=== PATIENT | female | born 1995 | race Caucasian/White ===

== ENCOUNTER 2017-06-15 14:35 | Observation (INO) | payer MEDICAID ==
[~2017-06-15] VITALS: Ht 162.6 cm; Wt 127.0 kg
[2017-06-15 15:27] LABS: Urine RBC None Seen /hpf (0 - 4)
[2017-06-15] MEDS ORDERED: PRENCAP61 PO (15:35)
[2017-06-15] MEDS ORDERED: CALC500C3 PO (15:36)
[2017-06-15 15:44] LABS: Basophils # (auto) 0.1 uL; Basophils % (auto) 0.5 % (0.0-2.0); Eosinophils # (auto) 0.1 uL; Eosinophils % (auto) 0.5 % (0.0-7.0); Hematocrit 38.5 % (36.0-46.0); Hemoglobin 12.8 g/dL (12.2-16.2); Lymphocytes # (auto) 2.3 uL; Lymphocytes % (auto) 21.4 % (10.0-50.0); Mean Corpuscular Hemoglobin 28.3 pg (28.0-32.0); Mean Corpuscular Hgb Conc. 33.2 g/dL (32.0-36.0); Mean Corpuscular Volume 85.3 fL (80.0-100.0); Mean Platelet Volume 8.5 fL (6.9-10.8); Monocytes # (auto) 0.7 uL; Neutrophils # (auto) 7.5 uL; Neutrophils % (auto) 70.6 % (37.0-80.0); Nucleated Red Blood Cells % 0.1 %; Platelet Count (auto) 233 10^3/uL (140-450); Red Cell Distribution Width 15.6 % (11.8-14.3); White Blood Cell 10.7 10^3/uL (4.4-10.8)
[2017-06-15 15:54] LABS: Urine Bilirubin Negative (Negative); Urine Blood Negative /uL (Negative); Urine Color Orange (Yellow); Urine Glucose Normal (Normal); Urine Ketone TRACE (Negative); Urine Mucus MODERATE (None Seen); Urine Nitrite Negative (Negative); Urine Squamous Epithelial Cell MOD /hpf (<5)
[2017-06-15 16:06] LABS: INR 0.9 (0.9-1.15); Partial Thromboplastin Time 26.4 sec (22.64-33.71); Prothrombin Time 9.8 sec (9.37-12.3)
[2017-06-15 16:07] LABS: Albumin 2.2 g/dL (3.4-5.0); Bilirubin, Total 0.2 mg/dL (0.2-1.0); Calcium 8.7 mg/dL (8.5-10.1); Potassium 4.1 mmol/L (3.5-5.1); Total Protein 6.2 g/dL (6.4-8.2); Uric Acid 6.3 mg/dL (2.6-6.0)
== END 2017-06-15 16:35 | disposition home or self-care (01) | DRG 566 ==
LOC: LDRP 14:35
PROVIDERS: ADMIT Obstetrics & Gynecology; ATTEND Obstetrics & Gynecology
DX: O99.413 Diseases of the circulatory system complicating pregnancy, third trimester (principal); R03.0 Elevated blood-pressure reading, without diagnosis of hypertension; Z3A.36 36 weeks gestation of pregnancy
CPT/HCPCS: 36415; 59025; 80053; 81001; 84550; 85025; 85610; 85730; G0378

== ENCOUNTER 2017-06-17 18:00 | Observation (INO) | payer MEDICAID ==
[~2017-06-17 18:00] MED LIST: CALC500C3 PO; PRENCAP61 PO
== END 2017-06-17 20:20 | disposition home or self-care (01) | DRG 560 ==
LOC: LDRP 18:00
PROVIDERS: ADMIT Obstetrics & Gynecology; ATTEND Obstetrics & Gynecology
DX: O13.4 Gestational [pregnancy-induced] hypertension without significant proteinuria, complicating childbirth (principal); Z3A.37 37 weeks gestation of pregnancy
CPT/HCPCS: 59025; 81002; 84156; G0378

== ENCOUNTER 2017-06-22 10:50 | Observation (INO) | payer MEDICAID ==
[2017-06-22 12:08] LABS: Albumin 2.2 g/dL (3.4-5.0); Bilirubin, Total 0.2 mg/dL (0.2-1.0); Calcium 8.5 mg/dL (8.5-10.1); Uric Acid 5.5 mg/dL (2.6-6.0)
[2017-06-22 12:09] LABS: Basophils # (auto) 0 uL; Basophils % (auto) 0.3 % (0.0-2.0); Eosinophils # (auto) 0.1 uL; Eosinophils % (auto) 0.6 % (0.0-7.0); Hematocrit 37.8 % (36.0-46.0); Hemoglobin 12.5 g/dL (12.2-16.2); Lymphocytes # (auto) 2.5 uL; Lymphocytes % (auto) 21.7 % (10.0-50.0); Mean Corpuscular Hemoglobin 28.4 pg (28.0-32.0); Mean Corpuscular Hgb Conc. 33.1 g/dL (32.0-36.0); Mean Corpuscular Volume 85.8 fL (80.0-100.0); Mean Platelet Volume 8.6 fL (6.9-10.8); Monocytes # (auto) 0.7 uL; Monocytes % (auto) 6.1 % (0.0-12.0); Neutrophils # (auto) 8.4 uL; Neutrophils % (auto) 71.3 % (37.0-80.0); Nucleated Red Blood Cells % 0.1 %; Platelet Count (auto) 208 10^3/uL (140-450); Red Cell Distribution Width 15.8 % (11.8-14.3); White Blood Cell 11.7 10^3/uL (4.4-10.8)
[2017-06-22 12:13] LABS: INR 0.89 (0.9-1.15); Prothrombin Time 9.7 sec (9.37-12.3)
== END 2017-06-22 13:10 | disposition home or self-care (01) | DRG 566 ==
LOC: LDRP 10:50
PROVIDERS: ADMIT Specialist; ATTEND Specialist
DX: O13.3 Gestational [pregnancy-induced] hypertension without significant proteinuria, third trimester (principal); Z3A.37 37 weeks gestation of pregnancy
CPT/HCPCS: 36415; 59025; 80053; 81002; 84550; 85025; 85610; 85730; G0378

== ENCOUNTER 2017-06-25 14:00 | Observation (INO) | payer MEDICAID, OTHER ==
[~2017-06-25 14:00] MED LIST changes: -CALC500C3 PO
[2017-06-25 16:11] LABS: Basophils # (auto) 0 uL; Basophils % (auto) 0.2 % (0.0-2.0); Eosinophils # (auto) 0.1 uL; Eosinophils % (auto) 0.5 % (0.0-7.0); Hemoglobin 12.2 g/dL (12.2-16.2); Lymphocytes # (auto) 2.4 uL; Lymphocytes % (auto) 20.5 % (10.0-50.0); Mean Corpuscular Hemoglobin 28.3 pg (28.0-32.0); Mean Corpuscular Volume 85.7 fL (80.0-100.0); Mean Platelet Volume 8.4 fL (6.9-10.8); Monocytes # (auto) 0.9 uL; Monocytes % (auto) 7.2 % (0.0-12.0); Neutrophils # (auto) 8.5 uL; Neutrophils % (auto) 71.6 % (37.0-80.0); Platelet Count (auto) 221 10^3/uL (140-450); White Blood Cell 11.9 10^3/uL (4.4-10.8)
[2017-06-25 16:25] LABS: INR 0.9 (0.9-1.15); Partial Thromboplastin Time 25.4 sec (22.64-33.71); Prothrombin Time 9.8 sec (9.37-12.3)
[2017-06-25 16:36] LABS: Albumin 2.2 g/dL (3.4-5.0); BUN/Creatinine Ratio 14.3; Bilirubin, Total 0.2 mg/dL (0.2-1.0); Calcium 8.9 mg/dL (8.5-10.1); Potassium 4.3 mmol/L (3.5-5.1); Total Protein 6.2 g/dL (6.4-8.2); Uric Acid 5.3 mg/dL (2.6-6.0)
== END 2017-06-25 14:55 | disposition home or self-care (01) | DRG 566 ==
LOC: LDRP 14:00 → EDUNIT# 14:00
PROVIDERS: ADMIT Obstetrics & Gynecology; ATTEND Specialist
DX: O62.9 Abnormality of forces of labor, unspecified (principal); Z3A.38 38 weeks gestation of pregnancy
CPT/HCPCS: 36415; 59025; 76818; 80053; 81002; 84550; 85025; 85610; 85730; G0378

== ENCOUNTER 2017-06-27 20:00 | Observation (INO) | payer MEDICAID ==
[2017-06-27 21:25] LABS: Basophils # (auto) 0 uL; Basophils % (auto) 0.4 % (0.0-2.0); Eosinophils # (auto) 0.1 uL; Eosinophils % (auto) 0.6 % (0.0-7.0); Hematocrit 37.7 % (36.0-46.0); Hemoglobin 12.3 g/dL (12.2-16.2); Lymphocytes % (auto) 24.1 % (10.0-50.0); Mean Corpuscular Hgb Conc. 32.7 g/dL (32.0-36.0); Mean Corpuscular Volume 85.7 fL (80.0-100.0); Mean Platelet Volume 8.9 fL (6.9-10.8); Monocytes # (auto) 0.9 uL; Monocytes % (auto) 7.6 % (0.0-12.0); Neutrophils # (auto) 8.3 uL; Neutrophils % (auto) 67.3 % (37.0-80.0); Nucleated Red Blood Cells % 0.1 %; Platelet Count (auto) 230 10^3/uL (140-450); Red Cell Distribution Width 15.9 % (11.8-14.3); White Blood Cell 12.4 10^3/uL (4.4-10.8)
[2017-06-27 21:27] LABS: Urine Bilirubin Negative (Negative); Urine Blood Negative /uL (Negative); Urine Color Yellow (Yellow); Urine Glucose Normal (Normal); Urine Ketone TRACE (Negative); Urine Mucus FEW (None Seen); Urine Nitrite Negative (Negative); Urine RBC 1 /hpf (0 - 4); Urine Squamous Epithelial Cell FEW /hpf (<5)
[2017-06-27 21:35] LABS: Albumin 2.3 g/dL (3.4-5.0); BUN/Creatinine Ratio 15.1; Bilirubin, Total 0.2 mg/dL (0.2-1.0); Calcium 8.7 mg/dL (8.5-10.1); Potassium 3.9 mmol/L (3.5-5.1); Total Protein 6.2 g/dL (6.4-8.2); Uric Acid 5.5 mg/dL (2.6-6.0)
[2017-06-27 21:42] LABS: INR 0.9 (0.9-1.15); Partial Thromboplastin Time 25.1 sec (22.64-33.71); Prothrombin Time 9.8 sec (9.37-12.3)
== END 2017-06-27 23:13 | disposition home or self-care (01) | DRG 566 ==
LOC: LDRP 20:00 → EDUNIT# 20:00
PROVIDERS: ADMIT Obstetrics & Gynecology; ATTEND Obstetrics & Gynecology
DX: O13.3 Gestational [pregnancy-induced] hypertension without significant proteinuria, third trimester (principal); Z3A.38 38 weeks gestation of pregnancy
CPT/HCPCS: 36415; 59025; 76818; 80053; 80307; 81001; 81002; 84550; 85025; 85610; 85730; 86850; 86900; 86901; G0378

== ENCOUNTER 2017-06-30 14:30 | Inpatient (IN) | payer MEDICAID ==
[~2017-06-30] VITALS: Ht 162.6 cm; Wt 127.0 kg
[2017-06-30] MEDS: LACTATED RINGER'S 1,000 ML IV SCH ×2 (06:45→15:50)
[2017-06-30] MEDS ORDERED: LACT. RINGERS/OXYTOCIN 20UNITS 1,000 ML IV SCH (15:29)
[2017-06-30] MEDS ORDERED: CARBOPROST TROMETHAMINE 250 MCG/1ML VIAL IM PRN (15:30)
[2017-06-30] MEDS ORDERED: WITCH HAZEL-GLYCERIN PAD TOP PRN (15:30)
[2017-06-30] MEDS ORDERED: PHISODERM TOP SOLN 240ML BTL TOP PRN (15:30)
[2017-06-30] MEDS ORDERED: NALBUPHINE HCL 10 MG/1ml INJECTION IV PRN (15:30)
[2017-06-30] MEDS ORDERED: METHYLERGONOVINE MALEATE 0.2 MG/ML AMP IM PRN (15:30)
[2017-06-30] MEDS ORDERED: DERMOPLAST 60ML BOTTLE TOP PRN (15:30)
[2017-06-30] MEDS ORDERED: LIDOCAINE 2%HCL (LOCAL ANESTH.) INJ 20ML MDV IJ ONE (15:30)
[2017-06-30 16:37] LABS: Albumin 2.3 g/dL (3.4-5.0); BUN/Creatinine Ratio 9.4; Calcium 8.6 mg/dL (8.5-10.1); Potassium 3.8 mmol/L (3.5-5.1)
[2017-06-30 16:39] LABS: Bilirubin, Total 0.2 mg/dL (0.2-1.0)
[2017-06-30 16:50] LABS: INR 0.92 (0.9-1.15); Partial Thromboplastin Time 25.7 sec (22.64-33.71)
[2017-06-30 17:15] LABS: Urine Bilirubin Negative (Negative); Urine Blood Negative /uL (Negative); Urine Color Yellow (Yellow); Urine Glucose Normal (Normal); Urine Ketone Negative (Negative); Urine Mucus FEW (None Seen); Urine Nitrite Negative (Negative); Urine RBC <1 /hpf (0 - 4); Urine Squamous Epithelial Cell FEW /hpf (<5); Urine Urobilinogen Normal (Negative)
[2017-06-30 17:34] LABS: Basophils # (auto) 0 uL; Basophils % (auto) 0.3 % (0.0-2.0); Eosinophils # (auto) 0 uL; Eosinophils % (auto) 0.2 % (0.0-7.0); Hematocrit 37.7 % (36.0-46.0); Hemoglobin 12.5 g/dL (12.2-16.2); Lymphocytes # (auto) 2.3 uL; Lymphocytes % (auto) 19.6 % (10.0-50.0); Mean Corpuscular Hemoglobin 28.2 pg (28.0-32.0); Mean Corpuscular Volume 85.5 fL (80.0-100.0); Mean Platelet Volume 9.4 fL (6.9-10.8); Monocytes # (auto) 0.7 uL; Neutrophils # (auto) 8.7 uL; Neutrophils % (auto) 73.9 % (37.0-80.0); Nucleated Red Blood Cells % 0.2 %; Platelet Count (auto) 223 10^3/uL (140-450); Red Cell Distribution Width 15.8 % (11.8-14.3); White Blood Cell 11.8 10^3/uL (4.4-10.8)
[2017-07-01] MEDS ORDERED: LACT. RINGERS/OXYTOCIN 20UNITS 1,000 ML IV SCH (04:56)
[2017-07-01] MEDS ORDERED: TERBUTALINE SULFATE 1 MG/ML 1ML VIAL SC ONE (05:00)
[2017-07-01] MEDS: LACTATED RINGER'S 1,000 ML IV SCH ×2 (14:30→23:29)
[2017-07-01] MEDS ORDERED: TETRACAINE 1% INJ 2 ML VIAL IJ ONE (18:22)
[2017-07-01] MEDS ORDERED: fentaNYL CITRATE 100 MCG/2 ML VL ONE (18:24)
[2017-07-01] MEDS ORDERED: MIDAZOLAM HCL 1MG/1ML-2 ML VIAL ONE (18:24)
[2017-07-01] MEDS ORDERED: OXYTOCIN 10 UNIT/ML 10ML VIAL ONE (18:55)
[2017-07-01] MEDS ORDERED: ONDANSETRON HCL 4 MG/2 ML VIAL IV ONE (19:30)
[2017-07-01] MEDS ORDERED: MIDAZOLAM HCL 1MG/1ML-2 ML VIAL IV PRN (19:30)
[2017-07-01] MEDS ORDERED: MORPHINE SULF INJ 2 MG/ML SYRINGE 1ML IV PRN ×2 (19:30→22:15)
[2017-07-01] MEDS ORDERED: KETOROLAC TROMETH 30 MG/ML 1ML VIAL IV ONE (19:30)
[2017-07-01] MEDS ORDERED: LABETALOL HCL 5 MG/ML 4ML SYRINGE IV PRN (19:30)
[2017-07-01] MEDS ORDERED: HYDROmorphone HCL 2 MG/ML VL IV PRN ×3 (19:30→22:15)
[2017-07-01] MEDS ORDERED: ePHEDrine SULFATE 50 MG/ML AMP IV PRN (19:30)
[2017-07-01] MEDS ORDERED: LACTATED RINGER'S 1,000 ML IV SCH (19:54)
[2017-07-01] MEDS ORDERED: CLINDAMYCIN 900MG IV 50 ML IV SCH (20:00)
[2017-07-01 21:00] VITALS: BP 117/90
[2017-07-01 21:30] VITALS: BP 123/66
[2017-07-01 22:00] VITALS: BP 125/73
[2017-07-01] MEDS ORDERED: KETOROLAC TROMETH 30 MG/ML 1ML VIAL ONE (22:08)
[2017-07-01] MEDS ORDERED: KETOROLAC TROMETH 30 MG/ML 1ML VIAL IV PRN (22:15)
[2017-07-01] MEDS ORDERED: MORPHINE SULF INJ 2 MG/ML SYRINGE 1ML ONE (23:34)
[2017-07-02] VITALS (9 sets, daily range): BP systolic 104–140; BP diastolic 65–85
[2017-07-02] MEDS ORDERED: CLINDAMYCIN 900MG IV 50 ML IV ONE (01:22)
[2017-07-02] MEDS: CLINDAMYCIN 900MG IV 50 ML IV SCH ×2 (01:30→09:35)
[2017-07-02] MEDS ORDERED: MORPHINE SULF INJ 2 MG/ML SYRINGE 1ML IV PRN (03:00)
[2017-07-02] MEDS ORDERED: HYDROmorphone HCL 2 MG/ML VL ONE (03:01)
[2017-07-02] MEDS: ONDANSETRON HCL 4 MG/2 ML VIAL IV PRN ×2 (03:29→11:45)
[2017-07-02] MEDS ORDERED: KETOROLAC TROMETH 30 MG/ML 1ML VIAL IV SCH ×3 (04:00→06:00)
[2017-07-02] MEDS: KETOROLAC TROMETH 30 MG/ML 1ML VIAL IV SCH ×2 (04:30→10:45)
[2017-07-02] MEDS: HYDROmorphone HCL 2 MG/ML VL IV PRN ×2 (05:58→08:25)
[2017-07-02 06:51] LABS: Basophils # (auto) 0.1 uL; Basophils % (auto) 0.5 % (0.0-2.0); Eosinophils # (auto) 0.1 uL; Eosinophils % (auto) 0.7 % (0.0-7.0); Hematocrit 33.2 % (36.0-46.0); Hemoglobin 11.1 g/dL (12.2-16.2); Lymphocytes # (auto) 2.9 uL; Lymphocytes % (auto) 27.3 % (10.0-50.0); Mean Corpuscular Hemoglobin 28.9 pg (28.0-32.0); Mean Corpuscular Hgb Conc. 33.5 g/dL (32.0-36.0); Mean Corpuscular Volume 86.4 fL (80.0-100.0); Mean Platelet Volume 8.8 fL (6.9-10.8); Monocytes # (auto) 0.8 uL; Monocytes % (auto) 7.5 % (0.0-12.0); Neutrophils # (auto) 6.9 uL; Platelet Count (auto) 172 10^3/uL (140-450); Red Cell Distribution Width 16.3 % (11.8-14.3); White Blood Cell 10.7 10^3/uL (4.4-10.8)
[2017-07-02] MEDS ORDERED: HYDROcodone-ACET 5/325MG TAB PO PRN ×2 (07:15)
[2017-07-02] MEDS: LACTATED RINGER'S 1,000 ML IV SCH ×2 (07:29→15:29)
[2017-07-02] MEDS: DOCUSATE SOD 100 MG CAP PO SCH ×2 (09:35→22:09)
[2017-07-02] MEDS: IBUPROFEN 800 MG TAB PO PRN (17:53)
[2017-07-02] MEDS ORDERED: ACETAMINOPHEN/CODEINE#3 (300/30mg) TAB PO PRN (19:00)
[2017-07-02] MEDS: ACETAMINOPHEN/CODEINE#3 (300/30mg) TAB PO PRN (19:28)
[2017-07-02] MEDS: SIMETHICONE 80 MG CHEWABLE TABLET PO PRN (22:09)
[2017-07-03] MEDS: IBUPROFEN 800 MG TAB PO PRN ×3 (03:14→23:25)
[2017-07-03 03:32] VITALS: BP 128/76
[2017-07-03] MEDS: ACETAMINOPHEN/CODEINE#3 (300/30mg) TAB PO PRN ×3 (05:46→20:48)
[2017-07-03 08:00] VITALS: BP 138/88
[2017-07-03] MEDS: DOCUSATE SOD 100 MG CAP PO SCH ×2 (10:02→22:10)
[2017-07-03] MEDS: SIMETHICONE 80 MG CHEWABLE TABLET PO PRN (11:20)
[2017-07-03 12:00] VITALS: BP 123/83
[2017-07-03 16:30] VITALS: BP 131/90
[2017-07-03] MEDS ORDERED: BISACODYL 10 MG RECT SUPP PR ONE (16:30)
[2017-07-03 19:00] VITALS: BP 126/60
[2017-07-03 23:30] VITALS: BP 124/88
[2017-07-04 03:00] VITALS: BP 136/89
[2017-07-04 04:00] VITALS: BP 136/89
[2017-07-04] MEDS: ACETAMINOPHEN/CODEINE#3 (300/30mg) TAB PO PRN (05:03)
[2017-07-04 08:00] VITALS: BP 136/58
[2017-07-04] MEDS: SIMETHICONE 80 MG CHEWABLE TABLET PO PRN (10:12)
[2017-07-04] MEDS: IBUPROFEN 800 MG TAB PO PRN (10:13)
[2017-07-04] MEDS: DOCUSATE SOD 100 MG CAP PO SCH (10:13)
[2017-07-04 12:00] VITALS: BP 135/87
== END 2017-07-04 15:10 | disposition home or self-care (01) | DRG 540 ==
LOC: LDRP 14:30
PROVIDERS: ADMIT Specialist; ATTEND Specialist
PROC: 10D00Z1 Extraction of Products of Conception, Low, Open Approach (ICD-10-PCS; principal; 2017-07-01 18:29)
DX: O62.1 Secondary uterine inertia (principal); Z68.42 Body mass index [BMI] 45.0-49.9, adult; O13.4 Gestational [pregnancy-induced] hypertension without significant proteinuria, complicating childbirth; O99.214 Obesity complicating childbirth; O64.0XX0 Obstructed labor due to incomplete rotation of fetal head, not applicable or unspecified; E66.01 Morbid (severe) obesity due to excess calories; Z37.0 Single live birth; Z3A.39 39 weeks gestation of pregnancy; Z88.0 Allergy status to penicillin
CPT/HCPCS: 36415; 51702; 59025; 76818; 80053; 81001; 81002; 84156; 84550; 85025; 85610; 85730; 86850; 86900; 86901; 96361; 96366; 96375; G0378; J1885; J2250; J2405; J2590; J3490

== ENCOUNTER 2017-07-05 12:03 | Emergency (ER) | payer MEDICAID ==
[~2017-07-05] VITALS: Ht 162.6 cm; Wt 129.3 kg
[2017-07-05 12:43] VITALS: BP 177/84
== END 2017-07-05 15:20 | disposition left against medical advice (07) ==
LOC: ER 12:03
DX: M54.9 Dorsalgia, unspecified (principal); Z53.21 Procedure and treatment not carried out due to patient leaving prior to being seen by health care provider